=== PATIENT | male | born 1975 | race African-American/Black ===

== ENCOUNTER 2023-02-04 06:28 | Emergency (ER) | payer OTHER, SELFPAY ==
[2023-02-04] VITALS (9 sets, daily range): BP systolic 166–193; BP diastolic 100–133; PULSE 64–77; RESP 14–26; TEMP 37; O2SAT 94–97; BMI 39.8
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
[2023-02-04] MEDS: iohexol 350 mg/mL 500 mL Btl (per mL) IV (06:46)
[2023-02-04 06:53] LABS: Basophils % 0.5 %; Eosinophils # 0.2 10^3/uL (0.0-0.8); Eosinophils % 3.5 %; Hematocrit 41.8 % (42.0-52.0); Hemoglobin 13.6 g/dL (11.7-16.6); Lymphocytes # 2.2 10^3/uL (0.8-4.8); Lymphocytes % 33.2 %; Mean Corpuscular HGB Conc 32.5 g/dL (30.0-36.0); Mean Corpuscular Hemoglobin 26.4 pg (28.0-34.0); Mean Platelet Volume 12.7 fL (7.4-10.4); Monocytes # 0.8 10^3/uL (0.2-0.9); Monocytes % 11.5 %; Neutrophils # 3.28 10^3/uL (1.8-7.7); Neutrophils % 49.8 %; Nucleated Red Blood Cells % 0 %; Platelet Count 119 10^3/cmm (130-400); Red Blood Count 5.16 10^6/uL (4.1-5.3); Red Cell Distribution Width 13.8 % (12.1-15.1); White Blood Count 6.6 10^3/uL (4.0-10.0)
[2023-02-04 07:02] LABS: Alanine Aminotransferase 16 U/L (0-41); Albumin Level 3.8 g/dL (3.5-5.2); Alkaline Phosphatase 88 U/L (40-130); Anion Gap 14.1 (5-19); Aspartate Amino Transferase 16 U/L (0-40); Blood Urea Nitrogen 10 mg/dL (6-20); Calcium 9.4 mg/dL (8.5-10.5); Carbon Dioxide 23 mmol/L (22-29); Chloride 103 mmol/L (98-107); Globulin 2.6 g/dL (1.3-4.6); Glomerular Filtration Rate 125.9 mL/min (90-130); Glucose 100 mg/dL (65-115); Osmolality Calculated 281 mOsm/kg (285-295); Potassium 4.1 mmol/L (3.5-5.1); Sodium 136 mmol/L (136-145); Total Bilirubin 0.3 mg/dL (0.15-1.2); Total Protein 6.4 g/dL (6.6-8.7)
[2023-02-04] MEDS: tetanus-dipt-pertussis 0.5 mL SDV IM (07:16)
--- NOTE | 2023-02-04 07:17 | ECG_ITS ---
[facility] Test Date: 2023-02-04 Pat Name: Rasheed Tapia Department: Room: Gender: Male Chamber Walker: : 1975 Requested By: Logan Toth Order Number: [id number] Sybil MD: Kevin Oglesby M.D. Measurements Intervals [place] Rate: 77 P: 98 VT: 158 QRS: 40 QRSD: 109 T: 34 QT: 373 QTc: 425 Interpretive Statements SINUS RHYTHM No previous ECG available for comparison Electronically Signed On 02-04-2023 12:29:08 CDT by Kevin Oglesby M.D. [id number]
[2023-02-04 07:24] LABS: Glucose Point of Care 90 mg/dL (70-110)
[2023-02-04 07:36] LABS: Slide Review Slide Review Perform
[2023-02-04] MEDS: labetalol 5 mg/mL SDV 20mL 20 MG IVP (07:55)
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
[2023-02-04] MEDS: HYDROcodone-acetaminophen 5-325 mg Tablet 1 TAB PO (08:40)
[2023-02-04] MEDS: ketorolac 30 mg/mL INJ IVP (08:41)
[2023-02-04 09:18] LABS: Add Urine Microscopic? NO; Charge for UA Resulting for Rev
[2023-02-04 09:26] LABS: Bilirubin Urine Neg (Negative); Blood Urine Neg (Negative); Glucose Urine UA Norm (Normal); Ketones Urine Negative (Negative); Leukocyte Esterase Urine Negative (Negative); Nitrate Urine Negative (Negative); Protein Urine Neg (Negative); Specific Gravity, Urine 1.015 (1.005-1.030); Urine Appearance Clear (CLEAR); Urine Color Yellow (Yellow); Urobilinogen Urine Norm (Negative); pH Urine 5 (5-7)
--- NOTE | 2023-02-12 13:19 | DCPLANNER ---
landscape account manager was triggered to call patient due to no primary care physician - patient does not live in the area.
== END 2023-02-04 09:45 | disposition home or self-care (01) ==
PROVIDERS: Emergency Provider Family Medicine
DX: S12.600A Unspecified displaced fracture of seventh cervical vertebra, initial encounter for closed fracture (principal); V89.2XXA Person injured in unspecified motor-vehicle accident, traffic, initial encounter; Z23 Encounter for immunization
CPT/HCPCS: 36416; 70450; 71260; 72125; 73130; 74177; 80053; 81003; 82962; 85025; 86850; 86900; 90471; 90715; 93005; 96374; 96375; 99285; J1885; J3490; Q9967